=== PATIENT | female | born 1965 | race Caucasian/White ===

== ENCOUNTER → 2017-10-30 07:47 | Outpatient (CLI) | payer OTHER, SELFPAY ==
--- NOTE | 2017-10-30 07:50 | MR_ITS ---
MR shoulder RT wo con HISTORY: Right shoulder pain with right arm pain and tingling and numbness ITS.REASON: PAIN IN RIGHT SHOULDER ORDERING PHYSICIAN: Nai Arriola PATIENT AGE: 51 years COMPARISON: None TECHNIQUE: Standard multiplanar multiecho sequences are performed without contrast. FINDINGS: Hypertrophic changes are present at the acromioclavicular joint with subacromial stenosis. There is spurring along the inferior aspect of the acromion. Subacromial space and nearly measures approximate 4 mm. The supraspinatus tendon appears intact with mild thickening and slight increased T2 signal consistent with tendinopathy/tendinosis. There is complete tear of the infraspinatus tendon with mild retraction of the tendinous fibers. The subscapularis and teres minor tendons are intact. No obvious labral tear. There is a small amount fluid in the subdeltoid region at the region of the infraspinatus tendon tear. Bicipital tendon is in place. There is some irregularity of the greater tuberosity which may be seen with chronic rotator cuff disease. No fracture or dislocation. IMPRESSION: 1. Acromioclavicular arthropathy with hypertrophy and subacromial stenosis with tendinopathy/tendinosis of the supraspinatus tendon. 2. Complete tear of the infraspinatus tendon with mild retraction of the tendinous fibers.
== END ==
PROVIDERS: Family Provider Internal Medicine Adolescent Medicine; Visit Provider Internal Medicine Rheumatology
DX: M25.511 Pain in right shoulder (principal)
CPT/HCPCS: 73221

== ENCOUNTER 2017-11-23 20:14 | Emergency (ER) | payer OTHER, SELFPAY ==
[2017-11-23 20:36] VITALS: BP 153/53; PULSE 83; RESP 24; TEMP 38.8; O2SAT 98; BMI 46.3
[2017-11-23 20:51] LABS: UTC Influenza A Antigen Positive (Negative); UTC Influenza B Antigen Negative (Negative)
--- NOTE | 2017-11-23 20:52 | HMH.EDUTC ---
[facility] [place] Disposition Clinical Impression: Influenza Disposition: Home, Self-Care Condition on Discharge: Good Instructions: Influenza, DI for Fever (Symptom) -- Adult Additional Instructions: ? Start Tamiflu today if you are going to take it. Discussed risk and possible benefits. ? Lots of rest ? Increase Fluids water, Gatorade, powerade, pedialyte,if /toddler/child ? Alternate Tylenol and / or ibuprofen as discussed for fever, aches, chills x 24 hours without medication for symptoms ? Follow up IMMEDIATELY for new or worsening Symptoms OR no noticeable improvement over the next 48-72 hours, 911 for difficulty or breathing ? You or your child area contagious until no fever, aches, chills for 24 hours with medication for symptoms Prescriptions: Dextromethorphan Polistirex [Delsym] 10 ml PO Q12H PRN #350 tri.er.12h PRN Reason: Cough Oseltamivir Phosphate [Tamiflu 75mg Capsule] 75 mg PO BID #10 cap Referrals: Provider,Referral, MD [Primary Care Provider] - Forms: Work/School Release Time of Disposition: 21:03 Medical Decision Making - Medical Records Medical records reviewed: Yes: I reviewed the patient's medical records. Vital Signs: 11/23/17 20:36 Temperature 101.9 F H Temperature Source Temporal Artery Scan Pulse Rate [Right] 83 Respiratory Rate 24 Blood Pressure [Right Arm] 153/53 Blood Pressure Mean [Right Arm] 86 Blood Pressure Source [Right Arm] Automatic Cuff Blood Pressure Position [Right Arm] Sitting 02 Sat by Pulse Oximetry 98 Oxygen Delivery Method Room Air - Lab Data Lab results reviewed: Yes: I reviewed the patient's lab results. Lab Results 11/23/17 20:44: Influenza Type A Ag Positive A, Influenza Type B Ag Negative - Alex Inquiry Pt receiving controlled substance: No Alex was queried for this patient: No [facility] HPI - General Stated complaint: Chills, cough, conjestion, weber Mode of Arrival: Ambulatory Source of Information: Patient Limitations: No Limitations Description of Symptoms (Recalled from Triage Doc. by RN): COUGH, CONGESTION, BODY ACHES HEENT Symptoms (Recalled from RN notes): Yes Resp Symptoms (Recalled from RN notes): No Skin Symptoms (Recalled from RN notes): No MS Symptoms (Recalled from RN notes): No Functional Status (Recalled from RN notes): N - History of Present Illness Provider Complaint: Patient state that about 3 am she began having body aches fever and chills State that she went to work anyhow and as the day went on she continued to feel worse State that after she got home her fever went up and body aches worsened so she was worried that she may have the flu so she came in to get checked out - Related Data Previous Rx's Medication Instructions Recorded norethindrone 1 mg-ethinyl 1 tab PO QDAY #28 tab 10/08/17 estradiol 10 mcg (24)-iron 10 mcg(2) tablet Dextromethorphan Polistirex 10 ml PO Q12H PRN #350 tri.er.12h 11/23/17 [Delsym] Oseltamivir Phosphate [Tamiflu 75 mg PO BID #10 cap 11/23/17 75mg Capsule] Allergies Allergy/AdvReac Type Severity Reaction Status Date / Time aspirin Allergy Unknown Verified 11/23/17 20:39 imipramine Allergy Unknown Verified 11/23/17 20:39 nitrofurantoin Allergy Unknown Verified 11/23/17 20:39 sulfisoxazole Allergy Unknown I-RASH Verified 11/23/17 20:39 [From GANTRISIN] - Worker's Comp Is this a Worker's Comp case?: No [facility] History I have reviewed the patient's past medical history: Yes - Social History Alcohol Intake: never - Psychiatric History Expresses thoughts of harming self/others: None Suicide Plan Description: No Plan ROS Obtained: Yes All systems reviewed & no additional complaints - Constitutional Constitutional: Reports body ache, Reports chills, Reports fever(s) - ENT Ears, Nose, Mouth, and Throat: Reports nasal congestion, Reports sore throat - Respiratory Respiratory: Yes cough Physical Exam - General General appearance: alert, in no appare
--- NOTE | 2017-11-23 20:56 | ED_ITS ---
[facility] [place] Disposition Clinical Impression: Influenza Disposition: Home, Self-Care Condition on Discharge: Good Instructions: Influenza, DI for Fever (Symptom) -- Adult Additional Instructions: ? Start Tamiflu today if you are going to take it. Discussed risk and possible benefits. ? Lots of rest ? Increase Fluids water, Gatorade, powerade, pedialyte,if /toddler/child ? Alternate Tylenol and / or ibuprofen as discussed for fever, aches, chills x 24 hours without medication for symptoms ? Follow up IMMEDIATELY for new or worsening Symptoms OR no noticeable improvement over the next 48-72 hours, 911 for difficulty or breathing ? You or your child area contagious until no fever, aches, chills for 24 hours with medication for symptoms Prescriptions: Dextromethorphan Polistirex [Delsym] 10 ml PO Q12H PRN #350 tri.er.12h PRN Reason: Cough Oseltamivir Phosphate [Tamiflu 75mg Capsule] 75 mg PO BID #10 cap Referrals: Provider,Referral, MD [Primary Care Provider] - Forms: Work/School Release Time of Disposition: 21:03 Medical Decision Making - Medical Records Medical records reviewed: Yes: I reviewed the patient's medical records. Vital Signs: 11/23/17 20:36 Temperature 101.9 F H Temperature Source Temporal Artery Scan Pulse Rate [Right] 83 Respiratory Rate 24 Blood Pressure [Right Arm] 153/53 Blood Pressure Mean [Right Arm] 86 Blood Pressure Source [Right Arm] Automatic Cuff Blood Pressure Position [Right Arm] Sitting 02 Sat by Pulse Oximetry 98 Oxygen Delivery Method Room Air - Lab Data Lab results reviewed: Yes: I reviewed the patient's lab results. Lab Results 11/23/17 20:44: Influenza Type A Ag Positive A, Influenza Type B Ag Negative - Alex Inquiry Pt receiving controlled substance: No Alex was queried for this patient: No [facility] [place] HPI - General Stated complaint: Chills, cough, conjestion, weber Mode of Arrival: Ambulatory Source of Information: Patient Limitations: No Limitations Description of Symptoms (Recalled from Triage Doc. by RN): COUGH, CONGESTION, BODY ACHES HEENT Symptoms (Recalled from RN notes): Yes Resp Symptoms (Recalled from RN notes): No Skin Symptoms (Recalled from RN notes): No MS Symptoms (Recalled from RN notes): No Functional Status (Recalled from RN notes): N - History of Present Illness Provider Complaint: Patient state that about 3 am she began having body aches fever and chills State that she went to work anyhow and as the day went on she continued to feel worse State that after she got home her fever went up and body aches worsened so she was worried that she may have the flu so she came in to get checked out - Related Data Previous Rx's Medication Instructions Recorded norethindrone 1 mg-ethinyl 1 tab PO QDAY #28 tab 10/08/17 estradiol 10 mcg (24)-iron 10 mcg(2) tablet Dextromethorphan Polistirex 10 ml PO Q12H PRN #350 tri.er.12h 11/23/17 [Delsym] Oseltamivir Phosphate [Tamiflu 75 mg PO BID #10 cap 11/23/17 75mg Capsule] Allergies Allergy/AdvReac Type Severity Reaction Status Date / Time aspirin Allergy Unknown Verified 11/23/17 20:39 imipramine Allergy Unknown Verified 11/23/17 20:39 nitrofurantoin Allergy Unknown Verified 11/23/17 20:39 sulfisoxazole Allergy Unknown I-RASH Verified 11/23/17 20:39 [From GANTRISIN]
[2017-11-23 21:03] VITALS: BP 150/60; PULSE 80; RESP 20; TEMP 38.3
== END 2017-11-23 21:08 | disposition home or self-care (01) ==
PROVIDERS: Emergency Provider Nurse Practitioner; Family Provider Internal Medicine Adolescent Medicine
DX: J10.1 Influenza due to other identified influenza virus with other respiratory manifestations (principal); Z88.8 Allergy status to other drugs, medicaments and biological substances
CPT/HCPCS: 87804; 99202

== ENCOUNTER 2017-12-13 15:00 | Outpatient (RCR) | payer OTHER, SELFPAY | END 2017-12-13 15:01 | disposition home or self-care (01) | LOC: PT 15:00 | PROVIDERS: Family Provider Internal Medicine Adolescent Medicine; Visit Provider Orthopaedic Surgery | DX: M75.121 Complete rotator cuff tear or rupture of right shoulder, not specified as traumatic (principal) | CPT/HCPCS: 97110 ==

== ENCOUNTER → 2017-12-24 15:10 | Outpatient (CLI) | payer OTHER, SELFPAY ==
--- NOTE | 2017-12-24 15:11 | MM_ITS ---
MM Dig screening mamm BI w/CAD CAD Screening ORDERING PHYSICIAN : Vic Rodriguez MD PATIENT AGE: 52 years GENDER: Female COMPARISON: Previous mammograms: December 2016, 2015, 2014 INDICATION: Routine screening. No hormones. No new complaints.. Family history.:. Mother with breast cancer age 56 TECHNIQUE: Standard CC and MLO images were obtained. R2 CAD reviewed. FINDINGS: Low-density breast bilaterally with no dominant mass nor suspicious calcifications. No significant new areas of concern when compared to previous studies been areas of very minor asymmetry appears stable of for example with slightly more evident glandular elements at the far lateral left breast on cc view only. Stable small scattered axillary nodes CAD computer review highlights no new areas of concern ========IMPRESSION======: Stable bilateral mammogram with no significant new findings. Bilateral follow-up in one year recommended BI-RADS Category: 1 Negative RECOMMENDED FOLLOW-UP: 1YR - 1 YEAR FOLLOW-UP (A letter has been sent to the patient regarding results of the study.)
== END ==
PROVIDERS: Family Provider Internal Medicine Adolescent Medicine; PCP Internal Medicine Adolescent Medicine; Visit Provider Nurse Practitioner Obstetrics & Gynecology
DX: Z12.31 Encounter for screening mammogram for malignant neoplasm of breast (principal)
CPT/HCPCS: 77067

== ENCOUNTER 2018-01-30 10:00 | Outpatient (RCR) | payer OTHER, SELFPAY ==
--- NOTE | 2018-01-09 15:24 | HMH.PTOPEV ---
Rehab Outpatient Evaluation Rehab OP Evaluation Start: 01/09/18 14:59 Freq: Status: Active Protocol: Document 01/09/18 15:00 [facility] (Rec: 01/09/18 15:23 [facility] [id number]) Electronically Signed By Alexa Lau OT 01/09/18 15:00 Outpatient Therapy Subjective History Subjective History Pt is a 52 year old female who reports to therapy for initial evaluation to right shoulder by OT. Pt reports her shoulder began hurting months ago. Pt went to doctor and had an MRI completed that confirmed an infraspinatus tear, supraspinatus tendonitis , and subacromial stenosis at the right shoulder. After finding these problems, pt did have PT for a few visits. Pt reports her symptoms improved so she stopped therapy. However, within the past few weeks, her symptoms have returned and become more severe. Her pain has increased significantly and her AROM and strength at right shoulder has declined. Pt has seen an ortho and had a steroid injection in October. Pt returns to doctor on February 06. Pt will continue to be seen twice a week to address these deficits. Chief Complaint Pain Stiff Symptom Type Ache Throb Sharp Dull Stabbing Shooting Symptoms Relieved By Nothing Symptoms Aggravated By Supine Physical Activity Twisting Lifting Prior Functional Limitations None Current Functional Limitations Reaching Lifting Housework Dressing Driving Sleeping Recreation Activity Symptom Description Constant but Variable Level of pain today (0-10
== END 2018-01-30 10:01 | disposition home or self-care (01) ==
LOC: OT 10:00
PROVIDERS: Family Provider Internal Medicine Adolescent Medicine; PCP Internal Medicine Adolescent Medicine; Visit Provider Nurse Practitioner Family
DX: M25.511 Pain in right shoulder (principal)
CPT/HCPCS: 97014; 97035; 97110; 97166; G0283

== ENCOUNTER 2018-05-15 15:00 | Outpatient (RCR) | payer OTHER, SELFPAY | END 2018-05-15 15:01 | disposition home or self-care (01) | LOC: OT 15:00 | PROVIDERS: Family Provider Internal Medicine Adolescent Medicine; PCP Internal Medicine Adolescent Medicine; Visit Provider Orthopaedic Surgery | DX: Z47.89 Encounter for other orthopedic aftercare (principal) | CPT/HCPCS: 97014; 97110; 97140; 97166; G0283 ==

== ENCOUNTER → 2018-11-14 15:01 | Outpatient (CLI) | payer OTHER, SELFPAY ==
--- NOTE | 2018-11-14 15:04 | MM_ITS ---
MM Dig screening mamm BI w/CAD ORDERING PHYSICIAN : Vic Rodriguez MD PATIENT AGE: 52 years GENDER: Female INDICATION: . Routine Screening Mammogram no hormones. No new complaints Family history. Mother breast cancer age 56 TECHNIQUE: Standard CC and MLO images were obtained. R2 CAD reviewed. COMPARISON: December 2017, 2016, 2015, 2014 and November 2013 [facility] digital mammogram studies. FINDINGS: Minimal residual fibroglandular elements. Lower density breast with Moderate generalized fatty replacement . There are some scattered areas of faint low-density minimal nodularity bilaterally which appears similar to previous studies. These areas Actually slightly less evident than on compared back to 2015 mammogram. . Stable moderate-sized axillary left nodes No new findings of significant concern.. No dominant mass nor suspicious calcifications Bilateral follow-up in one year IMPRESSION: Stable bilateral mammogram. No significant new findings. Bilateral follow-up in one year. BI-RADS Category: 1 Negative RECOMMENDED FOLLOW-UP: 1YR 1 YEAR FOLLOW-UP (A letter has been sent to the patient regarding results of the study.)
== END ==
PROVIDERS: PCP Internal Medicine Adolescent Medicine; Visit Provider Nurse Practitioner Obstetrics & Gynecology
DX: Z12.31 Encounter for screening mammogram for malignant neoplasm of breast (principal)
CPT/HCPCS: 77067

== ENCOUNTER → 2019-01-06 15:08 | Outpatient (CLI) | payer OTHER, SELFPAY ==
--- NOTE | 2019-01-06 15:10 | US_ITS ---
US transvaginal] transvaginal scanning Ordering Physician: Vic Rodriguez MD Patient Age: 53 years: Female HISTORY: ITS.REASON: US T/V- Abnormal bleeding 53-year-old no perinephric 3 years now with with abnormal uterine bleeding, during 3 weeks in November TECHNIQUE: Transvaginal pelvic ultrasound followed by transabdominal scanning to further search for ovaries./cc COMPARISON :No relevant studies FINDINGS Uterus somewhat difficult to delineate and visualized Uterus. = 5.5 cm length x 2.65 cm x 3.1 cm wide. Modest size uterus No uterine fibroids are identified. . Endometrium measures 10 mm thickness. No fluid in cul-de-sac. Ovaries were not visible with transvaginal nor subsequent nor with subsequent transabdominal scanning. IMPRESSION: ... Modest size uterus. No fibroids no masses 10 mm endometrial stripe. Ovaries could not be visualized with either transvaginal or transabdominal scanning
== END ==
PROVIDERS: PCP Internal Medicine Adolescent Medicine; Visit Provider Nurse Practitioner Obstetrics & Gynecology
DX: N92.6 Irregular menstruation, unspecified (principal)
CPT/HCPCS: 76830

== ENCOUNTER → 2019-03-07 07:58 | Outpatient (CLI) | payer OTHER, SELFPAY ==
[2019-03-07 10:41] LABS: Free Thyroxine Index 2.9 ug/dL (5.93-13.13); Thyroid Stimulating Hormone 1.03 uIU/ml (0.358-3.740); Triiodothryronine (T3) Uptake 32 % (31-39)
[2019-03-09 21:40] LABS: Estradiol 12.6 pg/mL (.); LH 7.9 mIU/mL (.)
== END ==
PROVIDERS: Visit Provider Nurse Practitioner Obstetrics & Gynecology
DX: N93.9 Abnormal uterine and vaginal bleeding, unspecified (principal); N95.1 Menopausal and female climacteric states; R53.83 Other fatigue
CPT/HCPCS: 36415; 82670; 83001; 83002; 84436; 84443; 84479

== ENCOUNTER → 2019-04-10 13:56 | Outpatient (CLI) | payer OTHER, SELFPAY ==
[2019-04-10 14:51] LABS: Blood Urea Nitrogen 20 mg/dL (7-18); Calcium 9.7 mg/dL (8.5-10.1); Carbon Dioxide 27 mmol/L (21.0-32.0); Chloride 101 mmol/L (98-107); Creatinine,Serum 0.79 mg/dL (0.55-1.02); Estimated Glomerular Filt Rate 77 ml/min (>60); GFR (African American) 93 ML/MIN (>60); Glucose 112 mg/dL (74-106); Sodium 137 mmol/L (136-145)
== END ==
PROVIDERS: Visit Provider Nurse Practitioner Family
DX: R60.9 Edema, unspecified (principal)
CPT/HCPCS: 36415; 80048

== ENCOUNTER → 2019-07-09 15:11 | Outpatient (CLI) | payer OTHER, SELFPAY ==
--- NOTE | 2019-07-09 15:19 | XR_ITS ---
PROCEDURE: XR HAND RT MIN 3V CLINICAL INDICATION: ARTHRALGIA, +CJ Pain and swelling third metacarpal COMPARISON: HANDR3 HAND-RT 3 VIEWS from 03/15/2017 HANDL3 HAND-LT-3 VIEWS from 03/15/2017 FINDINGS: No fracture or dislocation. No lytic or blastic change. There is normal mineralization. There are mild osteoarthritic changes of the 2nd PIP and DIP joint. No bony erosive process. Mild osteoarthritis of the 5th DIP and the 3rd metacarpophalangeal joint. Other findings:There are small cystic areas in the distal aspect of the scaphoid and in the mid aspect of the capitate and may be due to subchondral cyst IMPRESSION: Mild osteoarthritic changes Dictated by: Jeff Vieyra MD 07/09/2019 16:40 Electronically signed by Jeff Vieyra MD in [place] 07/09/2019 16:40
[2019-07-09 15:39] LABS: Basophils # 0.1 K/mm3 (0-0.2); Basophils % 0.6 % (0.1-2.0); Eosinophils # 0.1 K/mm3 (0.0-0.4); Eosinophils % 1.3 % (0.1-12.0); Hematocrit 39.3 % (37.0-47.0); Hemoglobin 12.7 g/dL (12.2-16.2); Lymphocytes # 2.4 K/mm3 (0.7-4.5); Lymphocytes % 28.3 % (10-50); Mean Corpuscular HGB Conc 32.2 g/dL (31.8-35.4); Mean Corpuscular Volume 93.3 fl (81-99); Mean Platelet Volume 7.9 fl (7.4-10.4); Monocytes # 0.4 K/mm3 (0.1-1.0); Monocytes % 4.8 % (1.7-9.3); Neutrophils # 5.4 K/mm3 (1.8-7.8); Platelet Count 329 K/mm3 (142-424); Red Blood Count 4.21 M/mm3 (4.20-5.40); White Blood Count 8.4 K/mm3 (4.8-10.8)
[2019-07-09 17:37] LABS: Erythrocyte Sedimentation Rate 26 mm/hr (0-30)
[2019-07-09 19:07] LABS: Alanine Aminotransferase 23 U/L (12-78); Albumin Level 3.8 gm/dL (3.4-5.0); Albumin/Globulin Ratio 1.2 (1.1-1.8); Alkaline Phosphatase 64 U/L (46-116); Anion Gap 13.3 mEq/L (5-15); Aspartate Amino Transferase 12 U/L (15-37); Bilirubin,Total 0.5 mg/dL (0.2-1.0); Blood Urea Nitrogen 20 mg/dL (7-18); C-Reactive Protein < 0.2 mg/dL (0.0-0.9); Calcium 8.9 mg/dL (8.5-10.1); Carbon Dioxide 26 mmol/L (21.0-32.0); Chloride 105 mmol/L (98-107); Creatinine,Serum 0.64 mg/dL (0.55-1.02); Estimated Glomerular Filt Rate 98 ml/min (>60); GFR (African American) 118 ML/MIN (>60); Globulin 3.3 gm/dl (1.3-3.2); Glucose 82 mg/dL (74-106); Potassium 4.3 mmoL/L (3.5-5.1); Sodium 140 mmol/L (136-145); Total Protein,Serum 7.1 gm/dL (6.4-8.2)
[2019-07-11 07:34] LABS: RA Latex Turbid. <10.0 IU/mL (0.0-13.9)
[2019-07-12 18:47] LABS: Anti-Cyclic Citrullinated Pept 7 units (0-19)
== END ==
PROVIDERS: Visit Provider Nurse Practitioner Family
DX: M25.541 Pain in joints of right hand (principal); R76.8 Other specified abnormal immunological findings in serum
CPT/HCPCS: 36415; 73130; 80053; 85025; 85651; 86140; 86200; 86431

== ENCOUNTER → 2019-07-14 14:54 | Outpatient (CLI) | payer OTHER, SELFPAY ==
--- NOTE | 2019-07-14 15:09 | CA_ITS ---
APPROVED REPORT Bilateral Lower Extremity Venous Study for DVT. 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 No valvular insufficiency demonstrated in the veins scanned of the right lower extremity. Conclusion No evidence of DVT or superficial thrombophlebitis in the veins scanned of the right lower extremity. Electronically signed by : Jeff Vieyra MD 07/16/2019 17:37:49
== END ==
PROVIDERS: PCP Internal Medicine Adolescent Medicine; Visit Provider Nurse Practitioner Family
DX: M79.604 Pain in right leg (principal); R60.0 Localized edema
CPT/HCPCS: 93971

== ENCOUNTER 2019-09-25 09:00 | Outpatient (RCR) | payer OTHER, SELFPAY | END 2019-09-25 09:05 | disposition home or self-care (01) | LOC: PT 09:00 | PROVIDERS: PCP Internal Medicine Adolescent Medicine; Visit Provider Orthopaedic Surgery | DX: M25.561 Pain in right knee (principal); Z96.651 Presence of right artificial knee joint; Z74.09 Other reduced mobility | CPT/HCPCS: 97014; 97016; 97110; 97140; 97163; G0283 ==

== ENCOUNTER → 2019-11-10 14:18 | Outpatient (CLI) | payer OTHER, SELFPAY ==
[2019-11-10 15:56] LABS: Anion Gap 13.4 mEq/L (5-15); Blood Urea Nitrogen 21 mg/dl (7-17); Calcium 9.7 mg/dl (8.4-10.2); Carbon Dioxide 25 mmol/L (22.0-30.0); Chloride 101 mmol/L (98-107); Estimated Glomerular Filt Rate 88 ml/min (>60); GFR (African American) 107 ML/MIN (>60); Glucose 91 mg/dl (74-100); Potassium 4.4 mmoL/L (3.5-5.1); Sodium 135 mmol/L (136-145)
== END ==
PROVIDERS: Visit Provider Internal Medicine Adolescent Medicine
DX: I10 Essential (primary) hypertension (principal)
CPT/HCPCS: 36415; 80048

== ENCOUNTER → 2019-11-17 15:39 | Outpatient (CLI) | payer OTHER, SELFPAY ==
--- NOTE | 2019-11-17 15:40 | MM_ITS ---
PROCEDURE: MM DIG SCREENING MAMM BI W/CAD BILATERAL DIGITAL BREAST TOMOSYNTHESIS INCLUDED Patient Age:53Y CLINICAL INDICATION: screening xmg no hormones but no new complaints. Family history mother with breast cancer age 56 COMPARISON: DIGMAMMS MAMMOGRAM SCREEN-GEOSPATIAL INTELLIGENCE ANALYST N/C from 11/11/2008 DIGMAMMS MAMMOGRAM SCREEN-GEOSPATIAL INTELLIGENCE ANALYST N/C from 11/19/2009 [facility] DIGITAL MAMM-SCREEN BILATERAL from 11/30/2010 [facility] DIGITAL MAMM-SCREEN BILATERAL from 12/06/2011 [facility] DIGITAL MAMM-SCREEN BILATERAL from 12/10/2012 [facility] DIG MAMM-SCREEN ALEE from 12/15/2013 [facility] DIG MAMM-SCREEN ALEE from 12/18/2014 [facility] DIG MAMM-SCREEN ALEE from 12/20/2015 [facility] DIG MAMM-SCREEN ALEE W/CAD from 12/22/2016 [facility] MM Dig screening mamm BI w/CAD from 12/24/2017 [facility] MM Dig screening mamm BI w/CAD from 11/14/2018 TECHNIQUE: Standard CC and MLO images were obtained. R2 CAD reviewed. Bilateral digital breast tomosynthesis included FINDINGS: Overall lower density breast with a of minimal residual scattered residual fibroglandular elements and eat breast. Moderate overall fatty replacement. No new suspicious or dominant mass. No suspicious, significant appearing calcifications Left breast. No new areas of significant concern Slight asymmetric area of density at the upper-outer quadrant left breast is been present since studies dating back to 2010, 2009 and 2008 with no significant change-possible reflect old area scarring No focal mass lesion seen here with tomosynthesis Right breast: Stable appearance with no significant new features. IMPRESSION: Stable bilateral mammogram. Bilateral follow-up 1 year. BI-RAD Category: 2 Benign Finding(s) FOLLOW-UP: 1YR 1 Year Follow-up (A letter has been sent to the patient regarding results of the study.) Dictated by: Angel Donald MD 11/19/2019 07:56 Electronically signed by Angel Donald MD in [place] 11/19/2019 07:56
== END ==
PROVIDERS: PCP Internal Medicine Adolescent Medicine; Visit Provider Nurse Practitioner Obstetrics & Gynecology
DX: Z12.31 Encounter for screening mammogram for malignant neoplasm of breast (principal)
CPT/HCPCS: 77063; 77067

== ENCOUNTER → 2020-02-20 09:40 | Outpatient (CLI) | payer OTHER, SELFPAY ==
[2020-02-20 10:09] LABS: Basophils # 0.1 K/mm3 (0-0.2); Basophils % 0.8 % (0.1-2.0); Chloride 103 mmol/L (98-107); Eosinophils # 0.1 K/mm3 (0.0-0.4); Eosinophils % 1.4 % (0.1-12.0); Hematocrit 41.6 % (37.0-47.0); Lymphocytes # 2.4 K/mm3 (0.7-4.5); Lymphocytes % 31.5 % (10-50); Mean Corpuscular HGB Conc 33.6 g/dL (31.8-35.4); Mean Corpuscular Volume 89.4 fl (81-99); Mean Platelet Volume 9.3 fl (7.4-10.4); Monocytes # 0.4 K/mm3 (0.1-1.0); Monocytes % 5.5 % (1.7-9.3); Neutrophils # 4.7 K/mm3 (1.8-7.8); Neutrophils % 60.9 % (37.0-80.0); Platelet Count 352 K/mm3 (142-424); Potassium 4.9 mmoL/L (3.5-5.1); Red Blood Count 4.66 M/mm3 (4.20-5.40); Red Cell Distribution Width 13.4 % (11.5-17.5); Sodium 140 mmol/L (136-145); White Blood Count 7.7 K/mm3 (4.8-10.8)
[2020-02-20 10:12] LABS: Alanine Aminotransferase 27 U/L (12-78); Albumin Level 4.7 g/dl (3.5-5.0); Albumin/Globulin Ratio 1.4 (1.1-1.8); Alkaline Phosphatase 62 U/L (38-126); Anion Gap 12.9 mEq/L (5-15); Aspartate Amino Transferase 29 U/L (14-36); Bilirubin,Total 0.8 mg/dl (0.2-1.3); Blood Urea Nitrogen 20 mg/dl (7-17); Carbon Dioxide 29 mmol/L (22.0-30.0); Cholesterol 143 mg/dl (140-200); Estimated Glomerular Filt Rate 75 ml/min (>60); GFR (African American) 91 ML/MIN (>60); Globulin 3.4 g/dL (1.3-3.2); Total Protein,Serum 8.1 g/dl (6.3-8.2); Triglycerides 158 mg/dl (30-150); VLDL Cholesterol 32 mg/dL (0-40)
[2020-02-20 10:13] LABS: Calcium 10.2 mg/dl (8.4-10.2); Chol/HDL Ratio 3.5 (1-3.5); Glucose 103 mg/dl (74-100); HDL Cholesterol 41 mg/dl (40-60)
[2020-02-20 10:24] LABS: Direct LDL Cholesterol 72.73 mg/dL (100-129)
[2020-02-21 13:53] LABS: Vitamin B12 978 pg/mL (232-1245); Vitamin D 25 Hydroxy 36.9 ng/mL (30.0-100.0)
== END ==
PROVIDERS: Visit Provider Internal Medicine Adolescent Medicine
DX: I10 Essential (primary) hypertension (principal); E78.5 Hyperlipidemia, unspecified; E03.9 Hypothyroidism, unspecified; E53.8 Deficiency of other specified B group vitamins; E55.9 Vitamin D deficiency, unspecified
CPT/HCPCS: 80053; 80061; 82607; 82652; 84443; 85025

== ENCOUNTER → 2020-05-10 16:24 | Outpatient (CLI) | payer OTHER, SELFPAY ==
[2020-05-10 16:48] LABS: Basophils % 0.5 % (0.1-2.0); Eosinophils # 0.2 K/mm3 (0.0-0.4); Eosinophils % 2.2 % (0.1-12.0); Hemoglobin 13.9 g/dL (12.2-16.2); Lymphocytes # 2.7 K/mm3 (0.7-4.5); Lymphocytes % 33.7 % (10-50); Mean Corpuscular Hemoglobin 30.9 pg (27.0-31.2); Mean Corpuscular Volume 93.5 fl (81-99); Mean Platelet Volume 7.7 fl (7.4-10.4); Monocytes # 0.4 K/mm3 (0.1-1.0); Monocytes % 5.1 % (1.7-9.3); Neutrophils # 4.7 K/mm3 (1.8-7.8); Neutrophils % 58.5 % (37.0-80.0); Platelet Count 307 K/mm3 (142-424); Red Blood Count 4.49 M/mm3 (4.20-5.40); Red Cell Distribution Width 13.4 % (11.5-17.5); White Blood Count 8.1 K/mm3 (4.8-10.8)
[2020-05-10 17:56] LABS: Chloride 105 mmol/L (98-107); Potassium 4.7 mmoL/L (3.5-5.1); Sodium 139 mmol/L (136-145)
[2020-05-10 17:59] LABS: Blood Urea Nitrogen 17 mg/dl (7-17); Estimated Glomerular Filt Rate 75 ml/min (>60); GFR (African American) 91 ML/MIN (>60)
[2020-05-10 18:00] LABS: Anion Gap 11.7 mEq/L (5-15); Calcium 9.5 mg/dl (8.4-10.2); Carbon Dioxide 27 mmol/L (22.0-30.0); Glucose 101 mg/dl (74-100)
[2020-05-10 18:31] LABS: Thyroid Stimulating Hormone 1.39 uIU/mL (0.465-4.68)
== END ==
PROVIDERS: Visit Provider Nurse Practitioner Family
DX: E03.9 Hypothyroidism, unspecified (principal); M79.89 Other specified soft tissue disorders
CPT/HCPCS: 36415; 80048; 84443; 85025

== ENCOUNTER 2020-07-16 16:00 | Outpatient (RCR) | payer OTHER, SELFPAY ==
--- NOTE | 2020-05-18 15:07 | HMH.PTOPWND ---
Rehab Outpt Wound Evaluation Rehab OP Wound Evaluation Start: 05/18/20 15:01 Freq: Status: Active Protocol: Document 05/18/20 15:01 LYDIA (Rec: 05/18/20 15:07 PHOKAE [id number]) Electronically Signed By Kelvin Holt, PT 05/18/20 15:01 Subjective/History History History Pt is 54 yowf who presents with c/o R LE edema x ~ 1-2 yrs overall. She reports hx of R TKA which has increased her edema. She states, I sneezed and popped a varicose vein in that leg too. She reports some decreased sensation along the anterior R haynes since her TKA. She has hx of HTN, OA, lumbar laminectomy L5/S1, lap CCY, and RCT repair. Subjective Subjective Currently no c/o pain, at worst pain is 5/10. Lymphedema Eval Classification of Lymphedema Secondary Lymphedema Yes Stemmer's sign Stemmer's Sign no Stage of Lymphedema Lymphedema stages Stage I (Pitting edema, reduces w/ elevation, no fibrosis) Skin Changes Dry Skin Yes Redness Yes Other Changes Yes Pain Scale Pain Scale (0-10) 5 Affected Extremities Areas Affected by Lymphedema/Edema Right Lower Extremity,Left Lower Extremity Manual Lymphatic Drainage Treatment Area MLD Treatment Area Right Lower Extremity,Left Lower Extremity Wound Problems/Impairments Impairments Problems/Impairmments Palpation Tenderness,Impaired Endurance,Impaired Gait Pattern,Impaired Walking, Impaired Standing,Impaired Recreational Activities, Increased Edema,Lymphedema Present,Subjective C/O Pain, Impaired Self Care/Self Management Prognosis Rehab Potential Good Clinical Impression Consistent with Diagnosis Yes Short Term Goals Number of Weeks 4 Decreased Palpation Tenderness Yes: to min Decrease Edema Yes Decrease Subjective C/O Pain Yes: 3/10 Patient to Understand Lymphedema Yes Treatment and Exercises Decrease Girth Measurments by (cm) Yes: by 10 cm Business Rules Developer Goals Number of Weeks 8 Decreased Palpation Tenderness
--- NOTE | 2020-07-08 15:43 | HMH.RHREAS ---
Rehab Reassessment Rehab OP Re-assessment Start: 07/08/20 15:39 Freq: Status: Active Protocol: Document 07/08/20 15:40 LYDIA (Rec: 07/08/20 15:43 LYDIA [id number]) Electronically Signed By Kelvin Holt, PT 07/08/20 15:40 Rehab Re-assessment Subjective Subjective Pt reports she has less pain and soreness, but legs still feel heavy. Objective Objective Notes Circumferential measurements: R LE 350.1 cm which is -1.2 cm since IE. Assessment Progress Assessment Progressing as Expected Assessment Notes Pt with less edema overall and less pain. Patient goals met ST,2,3,[address] LT,2,3,4,5,6,7 Revised Goals none Plan Plan Continue per initial POC Frequency of Therapy 2 x/wk Duration of therapy 8 wks Time and Billing Re-Eval Time 15 Re-Eval Billing Units 1 PHYSICIAN CERTIFICATION: I certify the specified therapy services for Akua Neff are required, authorized, and reviewed every 30 days.
== END 2020-07-16 16:05 | disposition home or self-care (01) ==
LOC: PT 16:00
PROVIDERS: PCP Internal Medicine Adolescent Medicine; Visit Provider Nurse Practitioner Family
DX: R60.0 Localized edema (principal)
CPT/HCPCS: 97140; 97162; 97164

== ENCOUNTER 2020-08-18 16:00 | Outpatient (RCR) | payer OTHER, SELFPAY | END 2020-08-18 16:05 | disposition home or self-care (01) | LOC: PT 16:00 | PROVIDERS: Visit Provider Orthopaedic Surgery | DX: M25.562 Pain in left knee; Z96.652 Presence of left artificial knee joint | CPT/HCPCS: 97010; 97014; 97110; 97140; 97163; G0283 ==

== ENCOUNTER → 2020-12-09 16:17 | Outpatient (CLI) | payer BC, SELFPAY ==
--- NOTE | 2020-12-09 16:17 | MM_ITS ---
PROCEDURE: MM DIG SCREENING MAMM BI W/CAD Digital Breast Tomosynthesis Included CLINICAL INDICATION: screening xmg There is a history of breast cancer in the patient's mother diagnosed at age 56. COMPARISON: [facility] MM Dig screening mamm BI w/CAD from 12/24/2017 [facility] MM Dig screening mamm BI w/CAD from 11/14/2018 MG MM DIG SCREENING MAMM BI W/CAD from 11/17/2019 TECHNIQUE: Standard CC and MLO images and 3D Tomosynthesis was obtained. R2 CAD reviewed. FINDINGS: Scattered fibroglandular densities are seen throughout both breasts. There are no CAD markers. No suspicious lesion in either breast and no suspicious microcalcifications. IMPRESSION: Fibrofatty parenchyma with no suspicious lesions seen BI-RAD Category: 1 Negative FOLLOW-UP: 1YR 1 Year Follow-up (A letter has been sent to the patient regarding results of the study.) Dictated by: Dr. Elliott Lozano MD 12/11/2020 09:41 Dr. Elliott Lozano MD in [place] 12/11/2020 09:41
== END ==
PROVIDERS: PCP Internal Medicine Adolescent Medicine; Visit Provider Nurse Practitioner Obstetrics & Gynecology
DX: Z12.31 Encounter for screening mammogram for malignant neoplasm of breast (principal)
CPT/HCPCS: 77063; 77067

== ENCOUNTER → 2021-02-01 09:47 | Outpatient (CLI) | payer OTHER, SELFPAY ==
--- NOTE | 2021-02-01 | XR_ITS ---
PROCEDURE: XR FOOT WT BEARING LT 3V CLINICAL INDICATION: OTHER CHRONIC PAIN COMPARISON: CR FTL3 FOOT-LT-3 VIEWS from 07/07/2015 CR FTR3 FOOT-RT-3 VIEWS from 07/07/2015 FINDINGS: Severe osteoarthritic changes are present at the talonavicular and navicular cuneiform joint as well as the calcaneocuboid and cuboid metatarsal joint. These findings have progressed compared to the previous exam. There is a prominent calcaneal spur as well as a prominent posterior talar process. There may be partial fusion the talonavicular joint.. There is a metallic foreign body along the plantar aspect of the soft tissues of the foot at the proximal 1st metatarsal region not significantly changed. There is pes planus IMPRESSION: Severe osteoarthritic changes of the midfoot which is progressed compared to the previous exam. Prominent calcaneal spur and prominent posterior talar process. No change metallic foreign body representing a broken needle along the plantar surface of the foot at the 1st metatarsal region Dictated by: Jeff Vieyra MD 02/01/2021 14:24 Jeff Vieyra MD in [place] 02/01/2021 14:24
--- NOTE | 2021-02-01 | XR_ITS ---
PROCEDURE: XR ANKLE WT BEARING RT MIN 3V CLINICAL INDICATION: OTHER CHRONIC PAIN COMPARISON: CR ANKR3 ANKLE-RT-3 VIEWS from 07/07/2015 CR ANKL3 ANKLE-LT-3 VIEWS from 07/07/2015 FINDINGS: There are mild moderate right osteoarthritic changes of the ankle joint with some decrease in the joint space medially along with osteophytes of the anterior distal tibia and of the talus. No acute fracture or dislocation. Talar dome has an unremarkable appearance. Ankle mortise is preserved. IMPRESSION: [id number] osteoarthritic changes of the ankle which have developed since the previous exam Dictated by: Jeff Vieyra MD 02/01/2021 14:15 Jeff Vieyra MD in [place] 02/01/2021 14:15
--- NOTE | 2021-02-01 | XR_ITS ---
PROCEDURE: XR FOOT WT BEARING RT 3V CLINICAL INDICATION: Right FOOT PAIN COMPARISON: CR FTL3 FOOT-LT-3 VIEWS from 07/07/2015 CR FTR3 FOOT-RT-3 VIEWS from 07/07/2015 FINDINGS: There are moderate to severe osteoarthritic changes of the tarsal bones at the talonavicular and navicular cuneiform joint. There are mild osteoarthritic changes at the tarsal metatarsal junction. Mild osteoarthritis also noted at the 1st metatarsophalangeal joint. There is a prominent calcaneal spur and small Achilles enthesophyte as well as a prominent os trigonum. There are some calcifications noted along the plantar aspect of the calcaneus. IMPRESSION: Osteoarthritic changes which have progressed compared to the previous exam. Prominent calcaneal spur. Dictated by: Jeff Vieyra MD 02/01/2021 14:19 Jeff Vieyra MD in [place] 02/01/2021 14:19
--- NOTE | 2021-02-01 | XR_ITS ---
PROCEDURE: XR ANKLE WT BEARING LT MIN 3V CLINICAL INDICATION: PAIN IN LT ANKLE AND JOINTS OF LT FOOT COMPARISON: CR ANKR3 ANKLE-RT-3 VIEWS from 07/07/2015 CR ANKL3 ANKLE-LT-3 VIEWS from 07/07/2015 FINDINGS: There are mild osteoarthritic changes of the left ankle with decrease in the joint space medially. The talar dome has an unremarkable appearance. The ankle mortise is preserved.. IMPRESSION: Mild osteoarthritis of the ankle on the left Dictated by: Jeff Vieyra MD 02/01/2021 14:16 Jeff Vieyra MD in [facility] 02/01/2021 14:16
[2021-02-01 10:12] LABS: Basophils # 0.1 K/mm3 (0-0.2); Basophils % 1.4 % (0.1-2.0); Eosinophils # 0.2 K/mm3 (0.0-0.4); Hematocrit 38.8 % (37.0-47.0); Lymphocytes # 2.4 K/mm3 (0.7-4.5); Lymphocytes % 31.6 % (10-50); Mean Corpuscular HGB Conc 33.6 g/dL (31.8-35.4); Mean Corpuscular Hemoglobin 30.2 pg (27.0-31.2); Mean Corpuscular Volume 90.1 fl (81-99); Mean Platelet Volume 7.8 fl (7.4-10.4); Monocytes # 0.4 K/mm3 (0.1-1.0); Neutrophils # 4.4 K/mm3 (1.8-7.8); Platelet Count 347 K/mm3 (142-424); Red Blood Count 4.31 M/mm3 (4.20-5.40); Red Cell Distribution Width 13.6 % (11.5-17.5); White Blood Count 7.5 K/mm3 (4.8-10.8)
[2021-02-01 10:49] LABS: Alanine Aminotransferase 26 U/L (12-78); Albumin Level 4.7 g/dl (3.5-5.0); Albumin/Globulin Ratio 1.7 (1.1-1.8); Alkaline Phosphatase 68 U/L (38-126); Aspartate Amino Transferase 24 U/L (14-36); Bilirubin,Total 0.7 mg/dl (0.2-1.3); Blood Urea Nitrogen 25 mg/dl (7-17); Carbon Dioxide 29 mmol/L (22.0-30.0); Chloride 103 mmol/L (98-107); Chol/HDL Ratio 4.6 (1-3.5); Cholesterol 184 mg/dl (140-200); Estimated Glomerular Filt Rate 75 ml/min (>60); GFR (African American) 91 ML/MIN (>60); Globulin 2.8 g/dL (1.3-3.2); Glucose 112 mg/dl (74-100); HDL Cholesterol 40 mg/dl (40-60); Sodium 139 mmol/L (136-145); Total Protein,Serum 7.5 g/dl (6.3-8.2); Triglycerides 240 mg/dl (30-150); VLDL Cholesterol 48 mg/dL (0-40)
[2021-02-01 11:10] LABS: Direct LDL Cholesterol 91.32 mg/dL (100-129)
[2021-02-01 11:15] LABS: 25-OH Vitamin D, Total 49.9 ng/mL (30-100)
[2021-02-01 11:30] LABS: Thyroid Stimulating Hormone 2.67 uIU/mL (0.465-4.68)
[2021-02-01 11:48] LABS: Vitamin B12 999 pg/mL (239-931)
[2021-02-02 13:39] LABS: Hemoglobin A1C 5.6 % (4.0-6.0)
== END ==
PROVIDERS: PCP Nurse Practitioner Family; Visit Provider Nurse Practitioner Family
DX: E03.9 Hypothyroidism, unspecified (principal); E78.5 Hyperlipidemia, unspecified; E53.8 Deficiency of other specified B group vitamins; E55.9 Vitamin D deficiency, unspecified; R73.9 Hyperglycemia, unspecified; M25.572 Pain in left ankle and joints of left foot; M25.672 Stiffness of left ankle, not elsewhere classified; G89.29 Other chronic pain
CPT/HCPCS: 36415; 73610; 73630; 80053; 80061; 82306; 82607; 83036; 84443; 85025

== ENCOUNTER 2021-05-09 09:15 | Outpatient (CLI) | payer OTHER, SELFPAY ==
[2021-05-09 09:25] VITALS: BP 125/78; PULSE 68; RESP 20; TEMP 36.9; O2SAT 95
== END 2021-05-09 09:50 | disposition home or self-care (01) ==
LOC: INF 09:17
PROVIDERS: PCP Nurse Practitioner Family; Visit Provider Nurse Practitioner Family
DX: M54.42 Lumbago with sciatica, left side (principal)
CPT/HCPCS: 96372

== ENCOUNTER → 2021-05-10 08:35 | Outpatient (CLI) | payer OTHER, SELFPAY ==
--- NOTE | 2021-05-10 08:42 | XR_ITS ---
PROCEDURE: XR HIP RT 2-3V W/PELVIS XR hip left 2-3 views CLINICAL INDICATION: RT HIP PAIN COMPARISON: CR XR HIP LT 2-3V W/PELVIS from 05/10/2021 FINDINGS: No acute fracture or dislocation is evident. No lytic or blastic change. There are mild osteoarthritic changes of both hips with osteophyte formation along the inferior acetabular region. This is slightly greater on the right. There are mild degenerative changes of the SI joints. IMPRESSION: Mild osteoarthritic changes of both hips and SI joints Dictated by: Jeff Vieyra MD 05/10/2021 10:11 Jeff Vieyra MD in [facility] 05/10/2021 10:11
--- NOTE | 2021-05-10 08:43 | XR_ITS ---
PROCEDURE: XR LUMBAR SPINE MIN 4V CLINICAL INDICATION: ACUTE LT-SIDED LBP W/ LS SCIATICA COMPARISON: No exams were available for comparison FINDINGS: There is normal alignment. There is ankylosis in the lower thoracic spine and at the thoracolumbar junction. Prominent anterior osteophytes are present at L1-L2-L3-L4 and L5 consistent with DISH. There is degenerative disc disease from L1-S1. 5 mm anterolisthesis of L4 on L5. No acute fracture or dislocation is evident. Facet arthritic changes with hypertrophy L3-L4 L5 and S1. There are also degenerative changes of the SI joints and of the hips. No lytic or blastic change IMPRESSION: Degenerative changes of the lumbar spine with multilevel degenerative disc disease and DISH. No acute fracture. Dictated by: Jeff Vieyra MD 05/10/2021 10:09 Jeff Vieyra MD in [facility] 05/10/2021 10:09
== END ==
PROVIDERS: PCP Nurse Practitioner Family; Visit Provider Nurse Practitioner Family
DX: M25.552 Pain in left hip (principal); M25.551 Pain in right hip; M54.42 Lumbago with sciatica, left side
CPT/HCPCS: 72110; 73502

== ENCOUNTER 2021-06-29 09:00 | Outpatient (RCR) | payer OTHER, SELFPAY ==
--- NOTE | 2021-05-30 14:18 | HMH.PTOPEV ---
PT Outpatient Evaluation Rehab PT Outpatient Evaluation Start: 05/30/21 13:57 Freq: Status: Active Protocol: Document 05/30/21 13:57 ZACKERY (Rec: 05/30/21 14:18 ZACKERY [id number]) Electronically Signed By Tha Kincaid, PT 05/30/21 13:57 Outpatient Therapy Subjective History Subjective History Pt reports h/o chronic bilateral hip pain and LBP for 'years', but reports s/s have progressed since left foot issue (OA) started ~6months ago. Pt reports L>R hip pain, referred LBP into groin area on right, and reports weakness in left hip. Pt also reports episode of left knee buckling on 05/28/21, w/LTKA on 07/20/20, 'so I'm a little worried that replacement might be damaged' . Chief Complaint Pain,Stiff,Gives out/Unstable, Weakness Symptom Type Ache,Sharp,Dull Symptoms Relieved By Heat,Prescription Meds Symptoms Aggravated By Standing,Physical Activity, Walking Prior Functional Limitations Housework,Standing,Walking Current Functional Limitations Housework,Standing,Walking Symptom Description Constant but Variable Level of pain today (0-10) 8 Pain scale - at its best (0-10) 7 Pain scale - at its worst (0-10) 10 Lumbopelvic Eval Palapation tenderness bilateral lumbar spinal tenderness Yes: 3/4 paraspinal tenderness Yes: 3/4 buttock tenderness Yes: 3/4 Lumbar/Sacral Palpation Findings Tenderness,Trigger Point, Muscle Guarding Accessory Movement L-spine Vertebrae Accessory Movements Central P/A [place] that Elicit Symptoms L3 bilateral L4 bilateral L5 bilateral S1 bilateral Hip/Knee Eval Gait Observation General Gait Pattern Observation Antalgic Gait,Wide Based Gait Assistive Device Assistive Devices None / NA Palpation Tenderness bilateral Knee Palpation Overall Comment glut med/max 3/4 Hip Palpation Findings Tenderness MMT left Hip Flexion Strength Grade 4- Good- Hip Abduction Strength Grade 3+ Fair+ Hip Adduction Strength Grade 3+ Fair+ Hip External Rotation Strength Grade 3+ Fair+ Hip Internal Rotation Strength Grade 4- Good- Knee Extension Strength Grade 4 Good Knee Flexion Strength Grade 4 Good right Hip Flexion Strength
== END 2021-06-29 09:05 | disposition home or self-care (01) ==
LOC: PT 09:00
PROVIDERS: PCP Nurse Practitioner Family; Visit Provider Nurse Practitioner Family
DX: M25.551 Pain in right hip (principal); M25.552 Pain in left hip
CPT/HCPCS: 97014; 97035; 97110; 97140; 97163; G0283

== ENCOUNTER → 2021-08-25 16:30 | Outpatient (CLI) | payer OTHER, SELFPAY ==
--- NOTE | 2021-08-25 16:32 | MR_ITS ---
PROCEDURE INFORMATION: Exam: MR Lumbar Spine Without Contrast Exam date and time: 08/25/2021 4:32 PM Age: 55 years old Clinical indication: Low back pain; Prior surgery; Surgery date: 6+ months; Additional info: Degenerative lumbar spinal stenosis. Bilateral leg weakness. Unable to pee. Lbp worse on RT side. Prior HX back surgery in 96. Prior x-ray 05-10-21 TECHNIQUE: Imaging protocol: Multiplanar magnetic resonance images of the lumbar spine without intravenous contrast. COMPARISON: CR XR LUMBAR SPINE MIN 4V 05/10/2021 8:45 AM FINDINGS: Vertebrae: There is anterolisthesis at L4-L5. No anterior wedging deformity. No acute fracture visualized. There is severe lower lumbar facet arthropathy, worst at L4-L5. No destructive osseous lesions are seen. There is congenital/developmental central canal stenosis due to short pedicular structure. Facet arthropathy and spondylosis contributes to central canal and neural foraminal stenosis at multiple levels. Spinal epidural space: There is no epidural mass or hemorrhage identified. Spinal cord: The distal spinal cord and conus medullaris are normal in signal and morphology. The cauda equina nerve roots are normally distributed within the thecal sac, with no clumping or adhesions. T12-L1: Moderate central stenosis due to a diffuse disc bulge and facet arthropathy. L1-L2: Moderate to severe central canal stenosis due to a diffuse disc bulge in combination with facet arthropathy. There is a central disc extrusion at this level which migrates approximately 1.5 cm below the disc level, indenting the ventral thecal sac. Moderate to severe right neural foraminal stenosis at L1-L2. L2-L3: Moderate central stenosis primarily due to neural foraminal stenosis. Severe left and moderate to severe right neural foraminal stenosis. L3-L4: Severe central canal stenosis due to a diffuse disc bulge in combination with facet arthropathy. There is severe bilateral lateral recess stenosis. Moderate to severe left and moderate right neural foraminal stenosis. L4-L5: See Vertebrae finding. L5-S1: Mild right lateral recess stenosis due to facet hypertrophy and spondylitic disc bulge, with moderate to severe bilateral neural foraminal stenosis. IMPRESSION: Congenital/developmental central canal stenosis, with superimposed spondylosis and facet arthropathy further narrowing the central canal and neural foramina at each level, as above. Disc extrusion is noted at the L1-L2 level, descending approximately 1.5 cm below the disc level.
== END ==
PROVIDERS: PCP Nurse Practitioner Family; Visit Provider Nurse Practitioner Family
DX: M48.061 Spinal stenosis, lumbar region without neurogenic claudication (principal); R33.9 Retention of urine, unspecified; K59.02 Outlet dysfunction constipation
CPT/HCPCS: 72148; 76376

== ENCOUNTER → 2022-01-16 07:39 | Outpatient (CLI) | payer OTHER, SELFPAY ==
--- NOTE | 2022-01-16 07:39 | MM_ITS ---
PROCEDURE INFORMATION: Exam: MG Bilateral Screening 3D Mammography Exam date and time: 01/16/2022 7:59 AM Age: 56 years old Clinical indication: Screening. Her mother had breast cancer at age 56. TECHNIQUE: Imaging protocol: Bilateral Screening tomosynthesis and 2D mammography including computer-aided detection (CAD) when performed. COMPARISON: 1. MG MM DIG SCREENING MAMM BI W/CAD 12/09/2020 4:21 PM 2. MG MM DIG SCREENING MAMM BI W/CAD 11/17/2019 3:55 PM 3. MG SCBI MM Dig screening mamm BI w/CAD 11/14/2018 3:17 PM 4. MG SCBI MM Dig screening mamm BI w/CAD 12/24/2017 3:22 PM FINDINGS: MAMMOGRAPHY: Breast composition: There are scattered areas of fibroglandular density. Mass: No suspicious mass. Architectural distortion: None. Calcifications: No suspicious calcifications. Asymmetric density: None. Skin thickening: None. Axillary adenopathy: None. IMPRESSION: No mammographic evidence of malignancy. Annual screening is recommended unless otherwise clinically indicated. ASSESSMENT: BI-RADS Category 1: Negative
== END ==
PROVIDERS: PCP Nurse Practitioner Family; Visit Provider Nurse Practitioner Obstetrics & Gynecology
DX: Z12.31 Encounter for screening mammogram for malignant neoplasm of breast (principal)
CPT/HCPCS: 77063; 77067

== ENCOUNTER 2022-06-06 10:30 | Outpatient (RCR) | payer OTHER, SELFPAY | END 2022-06-06 10:35 | disposition home or self-care (01) | LOC: PT 10:30 | PROVIDERS: PCP Nurse Practitioner Family | DX: M48.062 Spinal stenosis, lumbar region with neurogenic claudication (principal) | CPT/HCPCS: 20560; 97010; 97014; 97035; 97110; 97140; 97163; G0283 ==

== ENCOUNTER → 2022-09-12 13:48 | Outpatient (CLI) | payer OTHER, SELFPAY ==
--- NOTE | 2022-09-12 13:57 | CT_ITS ---
FINAL REPORT TECHNIQUE: Axial imaging of the lumbar spine was obtained without contrast. Sagittal and coronal reformatted images were also obtained and reviewed. This study was performed with techniques to keep radiation doses as low as reasonably achievable (ALARA). Individualized dose reduction techniques using automated exposure control or adjustment of mA and/or kV according to the patient''s size were employed. CLINICAL HISTORY: LOW BACK PAIN W/SCIATICA,DDD FINDINGS: There is no fracture. There is mild anterolisthesis of L4 on L5.. There are moderate and severe degenerative changes throughout. There is vacuum disc phenomenon at L3-4. There is no evidence of significant central canal stenosis. L1-L2: There is an annular disc bulge with facet arthropathy and vertebral osteophytes. There is severe right moderate left neural foraminal narrowing. There is moderate central canal stenosis with an AP diameter of the thecal sac of 5 mm. L2-L3: There is an annular disc bulge with facet arthropathy and vertebral osteophytes. There is moderate right and severe left neural foraminal narrowing. There is moderate central canal stenosis with an AP diameter of the thecal sac of 6 mm. L3-L4: There is an annular disc bulge with facet arthropathy and vertebral osteophytes. There is moderate right and severe left neural foraminal narrowing. There is moderate central canal stenosis with an AP diameter of the thecal sac of 5 mm. L4-L5: There is an annular disc bulge with facet arthropathy and vertebral osteophytes. There is severe bilateral neural foraminal narrowing. There is severe central canal stenosis with an AP diameter of the thecal sac of the 3 mm. L5-S1: There are postoperative changes on the right. There is an annular disc bulge with facet arthropathy and vertebral osteophytes. There is severe bilateral neural foraminal narrowing. There is spurring of the SI joints. IMPRESSION: Multilevel moderate and severe degenerative change and spondylosis with areas of moderate and severe neural foraminal narrowing throughout. Moderate and severe central canal stenosis as above. Reviewed, Interpreted and Dictated by Reza Almanzar III, MD Transcribed by Yuly Bland Authenticated and [facility]
== END ==
PROVIDERS: PCP Nurse Practitioner Family; Visit Provider Physician Assistant Medical
DX: M54.41 Lumbago with sciatica, right side (principal); M54.42 Lumbago with sciatica, left side; G89.29 Other chronic pain; M51.36 Other intervertebral disc degeneration, lumbar region; M48.062 Spinal stenosis, lumbar region with neurogenic claudication
CPT/HCPCS: 72131

== ENCOUNTER → 2022-12-01 11:44 | Outpatient (CLI) | payer OTHER, SELFPAY | PROVIDERS: PCP Internal Medicine Adolescent Medicine; Visit Provider Neurological Surgery | DX: Z01.812 Encounter for preprocedural laboratory examination (principal); Z11.52 Encounter for screening for COVID-19 | CPT/HCPCS: C9803; U0003; U0005 ==

== ENCOUNTER 2022-12-27 08:40 | Outpatient (RCR) | payer OTHER, SELFPAY ==
--- NOTE | 2022-12-27 09:52 | HMH.SLAPHASI ---
Speech & Language Evaluation Speech/Language Aphasia Evaluation Start: 12/27/22 09:27 Freq: once Status: Complete Protocol: Document 12/27/22 09:27 ARMAND (Rec: 12/27/22 09:51 ARMAND [id number]) Aphasia Assessment/Goals/Plan Assessment Date of Evaluation: 12/27/22 Evaluation Type Initial Certification Assessment/Problems Cognition per MD order. Does Patient Qualify for Service No Qualify/Failure Comment Based on the cognitive linguistic assessment, no further skilled speech therapy services are warranted at this time. Plan Pt/Guardian verbally ack understanding Yes of dx/prognosis/goals Pt/Guardian verbally ack understanding Yes of/consent to tx prog G -code Required No Education Instructions provided Assessment results discussed with patient who expressed understanding. Pt/Caregiver Able to Recall Information Able to recall/restate Reinforcement needed No Speech & Language HPI History Present Illness Description of Patient Problem Ms. Akers is a 57 year old female presenting to [facility] for an evaluation of cognitive linguistic skills. PMH is significant for arthritis, DM2 , GERD, hypothyroidism, hypertension, fibromyalgia, lumbar spondylolisthesis, and JEFFERY. She underwent a scheduled transforaminal interbody fusion at L3-5. The surgery was completed without any major complications and D/Jacob with recommendations for acute rehab. PSYCHIATRICH completed a speech therapy evaluation and she was not picked up for therapy for speech in acute rehab. Rehab Services Assessed Speech therapy Is this evaluation r/t stroke? No Aphasia Evaluations Communication Auditory Comprehension Yes: Word Level Sentences Following Directions Paragraph Conversation Reading Comprehension Yes: Letter Naming Word Naming Sentences
== END 2022-12-27 08:45 | disposition home or self-care (01) ==
LOC: ST 08:40
PROVIDERS: PCP Internal Medicine Adolescent Medicine; Visit Provider Physician Assistant
DX: G31.84 Mild cognitive impairment of uncertain or unknown etiology (principal)
CPT/HCPCS: 92523

== ENCOUNTER 2022-12-27 08:52 | Outpatient (RCR) | payer OTHER, SELFPAY | END 2022-12-27 10:00 | disposition home or self-care (01) | LOC: PT 08:52 | PROVIDERS: PCP Internal Medicine Adolescent Medicine | DX: M54.6 Pain in thoracic spine (principal); M43.25 Fusion of spine, thoracolumbar region | CPT/HCPCS: 97010; 97014; 97110; 97140; 97163; 97530; G0283 ==

== ENCOUNTER → 2023-01-19 09:32 | Outpatient (CLI) | payer OTHER, SELFPAY ==
--- NOTE | 2023-01-19 09:38 | CT_ITS ---
FINAL REPORT TECHNIQUE: Axial images were obtained of the lumbar spine by computed tomography. Coronal and sagittal reconstruction process performed. This study was performed with techniques to keep radiation doses as low as reasonably achievable (ALARA). Individualized dose reduction techniques using automated exposure control or adjustment of mA and/or kV according to the patient''s size were employed. CLINICAL HISTORY: BACK PAIN POST OP COMPARISON: 09/12/2022 FINDINGS: There has been interval posterior and interbody fusion of L3-4 and L4-5. There is accentuated spondylolisthesis of L4 on L5 measuring up to 11 mm, particularly eccentric to the left, seen on image 45 of series 602. There may be an oblique fracture through the L4-5 vertebra along the course of the hardware. Artifact from hardware compromises evaluation. There is prominent anterior osteophyte formation throughout the lumbar spine. L1-2: Moderate diffuse disc bulge. Endplate hypertrophy. Moderate right and mild left neural foraminal narrowing. L2-3: Endplate hypertrophy eccentric to the right. Mild right neural foraminal narrowing. L3-4: Mild endplate hypertrophy. Mild bilateral neural foraminal narrowing. L4-5: Spondylolisthesis of L4 on L5. High-grade bilateral neural foraminal compromise. Posterior laminectomy defect. L5-S1: [id number] endplate hypertrophy. Moderate to high-grade right and moderate left neural foraminal narrowing. IMPRESSION: Interval posterior and interbody fusion of L3-4 and L4-5. New significant spondylolisthesis of L4 on L5 with significant bilateral neural foraminal compromise at this level. Apparent oblique fracture through the L5 vertebra which is new. Reviewed, Interpreted and Dictated by Joshua Andino MD Transcribed by Dulce Gardner Authenticated and [facility]
== END ==
PROVIDERS: PCP Internal Medicine Adolescent Medicine; Visit Provider Physician Assistant Medical
DX: Z98.1 Arthrodesis status (principal); M54.41 Lumbago with sciatica, right side; M54.42 Lumbago with sciatica, left side; M48.062 Spinal stenosis, lumbar region with neurogenic claudication
CPT/HCPCS: 72131

== ENCOUNTER 2023-01-23 13:00 | Outpatient (RCR) | payer OTHER, SELFPAY | END 2023-01-23 13:05 | disposition home or self-care (01) | LOC: PT 13:00 | PROVIDERS: PCP Internal Medicine Adolescent Medicine | DX: M54.6 Pain in thoracic spine (principal) | CPT/HCPCS: 97165 ==

== ENCOUNTER 2023-05-17 08:00 | Outpatient (RCR) | payer OTHER, SELFPAY | END 2023-05-17 08:05 | disposition home or self-care (01) | LOC: PT 08:00 | PROVIDERS: PCP Internal Medicine Adolescent Medicine; Visit Provider Neurological Surgery | DX: M54.50 Low back pain, unspecified (principal); M43.26 Fusion of spine, lumbar region | CPT/HCPCS: 20560; 97010; 97014; 97035; 97110; 97116; 97140; 97163; 97164; 97530; 97535; G0283 ==

== ENCOUNTER → 2023-08-13 14:12 | Outpatient (CLI) | payer MEDICARE, OTHER, SELFPAY ==
--- NOTE | 2023-08-13 14:20 | XR_ITS ---
FINAL REPORT CLINICAL HISTORY: foot pain COMPARISON: None FINDINGS: LEFT ANKLE: Three views show no evidence of acute displaced fracture or dislocation of the visualized bony architecture. There is moderate degenerative change present in the ankle as well as osteopenia. There is slight widening of the ankle mortise. The joint spaces appear otherwise normal. IMPRESSION: Moderate degenerative change and osteopenia. Mild widening of the ankle mortise. Reviewed, Interpreted and Dictated by Yuni Liao MD Transcribed by Jia Sim Authenticated and [facility]
--- NOTE | 2023-08-13 14:20 | XR_ITS ---
FINAL REPORT CLINICAL HISTORY: foot pain COMPARISON: None FINDINGS: LEFT FOOT: There is diffuse degenerative change with probable neuropathic disease primarily in the midfoot and hindfoot. There is a metallic foreign body projecting in the plantar aspect of the foot, all measuring up to 17 mm in length. No acute fracture is identified. IMPRESSION: No acute fracture is present. 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 Metallic foreign body plantar to the first metatarsal as described. Reviewed, Interpreted and Dictated by Yuni Liao MD Transcribed by Jia Sim Authenticated and [facility]
== END ==
PROVIDERS: PCP Internal Medicine Adolescent Medicine; Visit Provider Podiatrist
DX: M79.672 Pain in left foot (principal); M25.572 Pain in left ankle and joints of left foot
CPT/HCPCS: 73610; 73630

== ENCOUNTER → 2023-09-14 12:49 | Outpatient (CLI) | payer MEDICARE, SELFPAY ==
--- NOTE | 2023-09-14 12:49 | MM_ITS ---
PROCEDURE INFORMATION: Exam: MG Bilateral Screening 3D Mammography Exam date and time: 09/14/2023 12:54 PM Age: 57 years old Clinical indication: Screening mammogram TECHNIQUE: Imaging protocol: Bilateral Screening tomosynthesis and 2D mammography including computer-aided detection (CAD) when performed. COMPARISON: 1. MG MM DIG SCREENING MAMM BI W/CAD 01/16/2022 7:59 AM 2. MG MM DIG SCREENING MAMM BI W/CAD 12/09/2020 4:21 PM 3. MG MM DIG SCREENING MAMM BI W/CAD 11/17/2019 3:55 PM 4. MG SCBI MM Dig screening mamm BI w/CAD 11/14/2018 3:17 PM FINDINGS: MAMMOGRAPHY: Breast composition: There are scattered areas of fibroglandular density. Mass: None. Architectural distortion: No new or suspicious architectural distortion. Calcifications: No new or suspicious calcifications are present Asymmetric density: No new or suspicious asymmetric density is present Skin thickening: None. Axillary adenopathy: None. IMPRESSION: No mammographic evidence of malignancy. Recommend annual screening mammography unless otherwise clinically indicated. ASSESSMENT: BI-RADS category 1: Negative
== END ==
LOC: RAD 12:49
PROVIDERS: PCP Internal Medicine Adolescent Medicine; Visit Provider Nurse Practitioner Obstetrics & Gynecology
DX: Z12.31 Encounter for screening mammogram for malignant neoplasm of breast (principal)
CPT/HCPCS: 77063; 77067

== ENCOUNTER 2024-11-13 09:00 | Outpatient (RCR) | payer MEDICARE, SELFPAY | END 2024-11-13 23:59 | disposition home or self-care (01) | LOC: PT 09:00 | PROVIDERS: PCP Internal Medicine Adolescent Medicine; Visit Provider Orthopaedic Surgery Adult Reconstructive Orthopaedic Surgery | DX: M62.81 Muscle weakness (generalized) (principal) | CPT/HCPCS: 97110; 97163; 97530 ==

== ENCOUNTER 2024-12-04 09:00 | Outpatient (RCR) | payer MEDICARE, SELFPAY | END 2024-12-04 23:59 | disposition home or self-care (01) | LOC: PT 09:00 | PROVIDERS: PCP Internal Medicine Adolescent Medicine; Visit Provider Orthopaedic Surgery Adult Reconstructive Orthopaedic Surgery | DX: M62.81 Muscle weakness (generalized) (principal) | CPT/HCPCS: 97110; 97116; 97164; 97530 ==

== ENCOUNTER 2024-12-09 15:18 | Outpatient (CLI) | payer MEDICARE, SELFPAY ==
--- NOTE | 2024-12-09 15:18 | MM_ITS ---
PROCEDURE INFORMATION: Exam: MG Bilateral Screening 3D Mammography Exam date and time: 12/09/2024 3:22 PM Age: 59 years old Clinical indication: Screening examination TECHNIQUE: Imaging protocol: Bilateral Screening tomosynthesis and 2D mammography including computer-aided detection (CAD) when performed. COMPARISON: 1. MG MM DIG SCREENING MAMM BI W/CAD 09/14/2023 12:54 PM 2. MG MM DIG SCREENING MAMM BI W/CAD 01/16/2022 7:59 AM FINDINGS: MAMMOGRAPHY: Breast composition: The breasts are almost entirely fatty. Mass: None. Architectural distortion: None. Calcifications: No suspicious calcifications. Asymmetric density: None. Skin thickening: None. Axillary adenopathy: None. IMPRESSION: No mammographic evidence of malignancy. Annual screening is recommended unless otherwise clinically indicated. ASSESSMENT: BI-RADS Category 1: Negative.
== END 2024-12-09 23:59 | disposition home or self-care (01) ==
LOC: RAD 15:18
PROVIDERS: PCP Internal Medicine Adolescent Medicine; Visit Provider Nurse Practitioner Obstetrics & Gynecology
DX: Z12.31 Encounter for screening mammogram for malignant neoplasm of breast (principal)
CPT/HCPCS: 77063; 77067